=== PATIENT | female | born 1945 ===

== ENCOUNTER 2019-02-17 19:30 | Outpatient (CLI) | payer MEDICARE | END 2019-02-17 19:31 | disposition home or self-care (01) | LOC: SLEEPLAB 19:30 | PROVIDERS: ATTEND Otolaryngology Plastic Surgery within the Head & Neck | DX: G47.33 Obstructive sleep apnea (adult) (pediatric) (principal); G47.31 Primary central sleep apnea; R53.83 Other fatigue | CPT/HCPCS: 95810 ==

== ENCOUNTER 2019-03-02 20:30 | Outpatient (CLI) | payer MEDICARE | END 2019-03-02 20:31 | disposition home or self-care (01) | LOC: SLEEPLAB 20:30 | PROVIDERS: ATTEND Otolaryngology Plastic Surgery within the Head & Neck | DX: G47.33 Obstructive sleep apnea (adult) (pediatric) (principal); R53.83 Other fatigue | CPT/HCPCS: 95811 ==